=== PATIENT | male | born 1980 | race Caucasian/White ===

== ENCOUNTER 2022-08-24 19:22 | Emergency (ER) | payer MEDICAID ==
[~2022-08-24] VITALS: Ht 182.9 cm; Wt 81.6 kg
--- NOTE | 2022-08-24 19:32 | NUR ---
[id number] FROM [address]RE[address] C/O SI, WITH PLAN TO OD ON DRUGS. RE[facility]MIT TO [facility]. PT A/OX3. TOLERATING R/A WELL WITH NO RESP DISTRESS. AMB WITH STEADY GAIT. PT CHANGED IN GOWN, BELONGINGS COLLECTED TO BE PLACED IN LOCKER, AND WANDED BY SECURITY. SAFETY SUICIDE PRECAUTIONS IN PLACE.
[2022-08-24] MEDS ORDERED: OLANZAPINE 10 MG VIAL IM ONE ×2 (19:40→20:00)
--- NOTE | 2022-08-24 19:45 | NUR ---
SET ILLUSTRATOR AT PT'S BEDSIDE
[2022-08-24 20:08] LABS: CALCIUM, SERUM 8.7 mg/dL (8.5-10.1); CARBON DIOXIDE 29 mmol/L (21-32); CHLORIDE 104 mmol/L (98-107); CREATININE 0.8 mg/dL (0.6-1.3); GLUCOSE 110 mg/dL (74-106); POTASSIUM 3.6 mmol/L (3.5-5.1); SODIUM SERUM 139 mmol/L (136-145); UREA NITROGEN, BLOOD 19 mg/dL (7-18)
--- NOTE | 2022-08-24 20:08 | NUR ---
COVID ANTIGEN SWAB COLLECTED AND SENT TO LAB
[2022-08-24 20:12] LABS: ALANINE AMINOTRANSFERASE 37 U/L (12-78); ALBUMIN 3.6 g/dL (3.4-5.0); ALCOHOL, BLOOD < 3 mg/dL (0-0); ALKALINE PHOSPHATASE 94 U/L (46-116); ASPARTATE AMINOTRANSFERASE 52 U/L (15-37); BILIRUBIN,DIRECT 0.1 mg/dL (0.0-0.2); BILIRUBIN,TOTAL 0.4 mg/dL (0.2-1.0); TOTAL PROTEIN, SERUM 7.7 g/dL (6.4-8.2)
[2022-08-24 20:13] LABS: BASOPHILS % (AUTO) 0.6 % (0.0-2.0); EOSINOPHILS % (AUTO) 1.7 % (0.0-6.0); HEMATOCRIT 40 % (39-51); LYMPHOCYTES # (AUTO) 3.1 K/uL (0.8-4.8); LYMPHOCYTES % (AUTO) 39.7 % (20.0-44.0); MEAN CORPUSCULAR HGB CONC 35 g/dl (31.0-36.0); MEAN CORPUSCULAR VOLUME 86 fL (80-96); MONOCYTES # (AUTO) 0.7 K/uL (0.1-1.30); MONOCYTES % (AUTO) 9.4 % (2.0-12.0); NEUTROPHILS # (AUTO) 3.8 K/uL (1.8-8.9); NEUTROPHILS % (AUTO) 48.6 % (43.0-81.0); PLATELET COUNT (AUTO) 324 K/uL (150-450); RED BLOOD CELL COUNT(AUTO) 4.67 MIL/uL (4.5-6.0); WHITE BLOOD COUNT (AUTO) 7.8 K/uL (4.3-11.0)
--- NOTE | 2022-08-24 22:01 | NUR ---
URINE COLLECTED ADN SENT TO LAB
[2022-08-24 22:41] LABS: BILIRUBIN,URINE NEGATIVE (NEGATIVE); COLOR,URINE YELLOW (YELLOW); LEUKOCYTE ESTERASE ,URINE NEGATIVE (NEGATIVE); NITRITE, URINE NEGATIVE (NEGATIVE); PH,URINE 6.5 (5.0-8.0); PROTEIN,URINE NEGATIVE (NEGATIVE); UGLUCOSE NEGATIVE (NEGATIVE)
[2022-08-24 22:58] LABS: BACTERIA,URINE Rare /HPF (None Seen); RBC,URINE TOO NUMEROUS TO COUN /HPF (0-2); SQUAMOUS EPITHELIAL CELL,UR Few /HPF (None Seen)
--- NOTE | 2022-08-25 02:31 | NUR ---
CLINICALS FAXED TO [facility]TAKE
--- NOTE | 2022-08-25 02:48 | NUR ---
PT IS ACCEPTED AT [facility] UNDER THE CARE OF DR. GONSALVES. CALL [phone]
--- NOTE | 2022-08-25 02:51 | NUR ---
[facility] ETA IN 90-120 MIN.
--- NOTE | 2022-08-25 02:53 | NUR ---
REPORT GIVEN TO ADAN LOVE FOR REPORT AT [facility]
[2022-08-25 04:15] VITALS: BP 138/86
--- NOTE | 2022-08-25 04:26 | NUR ---
GAVE REPORT TO EMS
--- NOTE | 2022-08-25 04:40 | NUR ---
PT TRANSFERRING TO [facility]IA [facility]; ALL BELONGINGS WITH PT. VSS
== END 2022-08-25 04:46 ==
LOC: ER 19:26
DX: R45.851 Suicidal ideations (principal); Z59.00 Homelessness unspecified; Z20.822 Contact with and (suspected) exposure to COVID-19
CPT/HCPCS: 99285; 96372; 85025; 80048; 80076; 81001; 36415; 87426; 80143; 80320; 80307; J3490; C9803; G0480